=== PATIENT | female | born 1990 ===

== ENCOUNTER 2022-03-22 13:18 | Outpatient (REF) | payer SELFPAY ==
[2022-03-24 14:06] LABS: COVID-19 RT-PCR UVMMC Result Negative (Negative)
== END 2022-03-22 13:19 | disposition home or self-care (01) ==
LOC: LBN 13:18
PROVIDERS: PCP Physician Assistant Medical; Visit Provider Physician Assistant Medical
DX: J02.9 Acute pharyngitis, unspecified (principal); Z20.822 Contact with and (suspected) exposure to COVID-19
CPT/HCPCS: U0003; 87070